=== PATIENT | female | born 1995 | race Caucasian/White ===

== ENCOUNTER → 2017-07-30 | Outpatient (CLI) | payer OTHER | LOC: M LRY 18:41 | DX: S69.91XA Unspecified injury of right wrist, hand and finger(s), initial encounter (principal); X58.XXXA Exposure to other specified factors, initial encounter; Y92.9 Unspecified place or not applicable; Y93.9 Activity, unspecified | CPT/HCPCS: 29130; 73130 ==

== ENCOUNTER → 2018-05-06 | Outpatient (REF) | payer OTHER | LOC: M SFHCLERA 16:44 | PROVIDERS: ATTEND Physician Assistant | DX: R10.13 Epigastric pain (principal) ==